=== PATIENT | female | born 1995 | race Asian ===

== ENCOUNTER 2018-01-11 16:17 | Emergency (ER) | payer OTHER ==
[2018-01-11 18:25] LABS: ABS Basophils 0.1 10^3/ul (0-0.2); ABS Eosinophils 0.1 10^3/ul (0-0.6); ABS Lymphocytes 1.6 10^3/ul (1.0-4.8); ABS Monocytes 0.4 10^3/ul (0-0.8); ABS Neutrophils 7.4 10^3/ul (1.5-7.7); ABS Nucleated RBC 0 10^3/ul; Eosinophil % 0.5 % (0-6); Hematocrit 41 % (35-47); Hemoglobin 13.6 g/dl (12.0-16.0); Lymphocyte % 16.6 % (25-47); Mean Corpuscular HGB Conc 34 g/dl (31-36); Mean Corpuscular Hemoglobin 30 pg (27-31); Mean Corpuscular Volume 90 fL (80-97); Mean Platelet Volume 7.8 um3 (7.4-10.4); Nucleated Red Blood Cells % 0.1; Platelet Count 221 10^3/ul (150-450); Red Cell Distribution Width 14 % (10.5-15); White Blood Count 9.6 10^3/ul (3.5-10.8)
--- NOTE | 2018-01-11 19:17 | RAD ---
INDICATION: Ectopic . COMPARISON: There are no prior studies available for comparison. TECHNIQUE: Multiple real-time transvaginal images of the pelvis were obtained. FINDINGS: The uterus is normal in size shape and echogenicity. The endometrial echo measures 0.6 cm in thickness. 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 No intrauterine gestational sac is seen. The right ovary measured 3.6 x 2.1 x 3.7 cm. The left ovary measured 3.0 x 2.5 x 1.5 cm. There are small bilateral subcentimeter follicular cysts present. There is a solid lesion medial to the right ovary and adjacent to the uterus measuring 2.3 x 1.5 x 1.6 cm suspicious for an ectopic . No heartbeat is seen. There is a small amount of complex fluid present within the cul-de-sac. The results of this exam were discussed with the referring clinician. IMPRESSION: 1. FINDINGS SUSPICIOUS FOR AN ECTOPIC IN THE RIGHT ADNEXAL REGION. 2. SMALL AMOUNT OF COMPLEX FREE INTRAPERITONEAL FLUID.
--- NOTE | 2018-01-11 19:47 | ED ---
Mery Melvin Elizabeth, scribed for Candelario Blood MD on 01/11/18 at 1804 . GI/ HPI - HPI Summary HPI Summary: This patient is a 22 year old F referred to [facility] from [facility] following unstable hormone levels. The patient reports that 8 days ago she had an early medicine after an ultrasound at [facility] revealed an ectopic . Patient reports she had vaginal bleeding for 5 days after, but says the bleeding has since resolved. - History of Current Complaint Chief Complaint: EDOBProblems Time Seen by Provider: 01/11/18 17:21 Stated Complaint: OB ISSUE Hx Obtained From: Patient Onset/Duration: Started Days Ago, Still Present Timing: Lasting Days Severity: Mild Pain Intensity: 0 Additional Signs & Symptoms: Positive: , Ectopic Aggravating Factor(s): Nothing Alleviating Factor(s): Nothing - Allergy/Home Medications Allergies/Adverse Reactions: Allergies Allergy/AdvReac Type Severity Reaction Status Date / Time No Known Allergies Allergy Verified 01/11/18 16:23 Home Medications: Home Medications Oral Control 1 tab PO DAILY 01/11/18 [History Confirmed 01/11/18] PMH/Surg Hx/FS Hx/Imm Hx Opthamlomology History: Denies: Hx Legally Blind EENT History: Denies: Hx Deafness Infectious Disease History: No Infectious Disease History: Denies: Traveled Outside the [place] in Last 30 Days - Family History Known Family History: Positive: None - Social History Alcohol Use: Rare Substance Use Type: Reports: None Smoking Status (MU): Never Smoked Tobacco Review of Systems Negative: Chest Pain Negative: Cough Negative: Rash Negative: Headache All Other Systems Reviewed And Are Negative: Yes Physical Exam - Summary Physical Exam Summary: Appearance: The patient is well-nourished in no acute distress and in no acute pain. Skin: The skin is warm and dry and skin color reflects adequate perfusion. HEENT: The head is normocephalic and atraumatic. The pupils are equal and reactive. The conjunctivae are clear and without drainage. Nares are patent and without drainage. Mouth reveals moist mucous membranes and the throat is without erythema and exudate. The external ears are intact. The ear canals are patent and without drainage. The tympanic membranes are intact. Neck: the neck is supple with full range of motion and non-tender. There are no carotid bruits. There is no neck vein distension. Respiratory: Chest is non-tender. Lungs are clear to auscultation and breath sounds are symmetrical and equal. Cardiovascular: Heart is regular rate and rhythm. There is no murmur or rub auscultated. There is no peripheral edema and pulses are symmetrical and equal. Abdomen: The abdomen is soft and non-tender. There are normal bowel sounds heard in all four quadrants and there is no organomegaly palpated. Musculoskeletal: There is no back tenderness noted. Extremities are non-tender with full range of motion. There is good capillary refill. There is no peripheral edema or calf tenderness elicited. Neurological: Patient is alert and oriented to person, place and time. The patient has symmetrical motor strength in all four extremities. Cranial nerves are grossly intact. Deep tendon reflexes are symmetrical and equal in all four extremities. Psychiatric: The patient has an appropriate affect and does not exhibit any anxiety or depression. Triage Information Reviewed: Yes Vital Signs On Initial Exam: Initial Vitals Temp Pulse Resp BP Pulse Ox 98.8 F 91 15 131/66 98 01/11/18 16:19 01/11/18 16:19 01/11/18 16:19 01/11/18 16:19 01/11/18 16:19 Vital Signs Reviewed: Yes Diagnostics - Vital Signs Vital Signs Temp Pulse Resp BP Pulse Ox 01/11/18 16:19 98.8 F 91 15 131/66 98 - Laboratory Lab Results: Lab Results 01/11/18 01/11/18 Range/Units 18:16 18:16 WBC 9.6 (3.5-10.8) 10^3/ul RBC 4.50 (4.0-5.4) 10^6/ul Hgb 13.6 (12.0-16.0) g/dl Hct 41 (35-47) % MCV 90 (80-97) fL MCH 30 (27-31) pg MCHC 34 (31-36) g/dl RDW 14 (10.5-15) % Plt Count 221 (150-450) 10^3/ul MPV 7.8 (7.4-10.4) um3 Neut % (Auto) 77.6 (38-83) % Lymph % (Auto) 16.6 L (25-47) % Reeves % (Auto) 4.6 (0-7) % Eos % (Auto) 0.5 (0-6) % Baso % (Auto) 0.7 (0-2) % Absolute Neuts (auto) 7.4 (1.5-7.7) 10^3/ul Absolute Lymphs (auto) 1.6 (1.0-4.8) 10^3/ul Absolute Monos (auto) 0.4 (0-0.8) 10^3/ul Absolute Eos (auto) 0.1 (0-0.6) 10^3/ul Absolute Basos (auto) 0.1 (0-0.2) 10^3/ul Absolute Nucleated RBC 0 10^3/ul Nucleated RBC % 0.1 Sodium 141 (139-145) mmol/L Potassium 4.1 (3.5-5.0) mmol/L Chloride 109 (101-111) mmol/L Carbon Dioxide 26 (22-32) mmol/L Anion Gap 6 (2-11) mmol/L BUN 13 (6-24) mg/dL Creatinine 0.65 (0.51-0.95) mg/dL Est GFR ( Amer) 144.0 (>60) Est GFR (Non-Af Amer) 112.0 (>60) BUN/Creatinine Ratio 20.0 (8-20) Glucose 103 H (70-100) mg/dL Calcium 9.4 (8.6-10.3) mg/dL Total Bilirubin 0.40 (0.2-1.0) mg/dL AST 16 (13-39) U/L ALT 14 (7-52) U/L Alkaline Phosphatase 53 (34-104) U/L Total Protein 7.3 (6.4-8.9) g/dL Albumin 4.4 (3.2-5.2) g/dL Globulin 2.9 (2-4) g/dL Albumin/Globulin Ratio 1.5 (1-3) Beta HCG, Quant 688.56 mIU/mL Result Diagrams: 01/11/18 18:16 01/11/18 18:16 Lab Statement: Any lab studies that have been ordered have been reviewed, and results considered in the medical decision making process. GIGU Course/Dx - Course Course Of Treatment: Ms. Rice is asymptomatic on arrival here but has an HCG of 688 and a likely ectopic on transvaginal U/S. Her labs are otherwise normal. I spoke with Dr. Tanner and we are going to treat her with methotrexate and close F/U. She is very stable here. - Diagnoses Provider Diagnoses: Ectopic Discharge - Sign-Out/Discharge Documenting (check all that apply): Discharge/Admit/Transfer - Discharge Plan Condition: Stable Disposition: HOME Patient Education Materials: Methotrexate (By injection), Ectopic (DC ) Referrals: [facility] - MRDarren [Primary Care Provider] - - Billing Disposition and Condition Condition: STABLE Disposition: HOME The documentation as recorded by the Mery saldana Elizabeth accurately reflects the service I personally performed and the decisions made by me, Candelario Blood MD.
[2018-01-11] MEDS ORDERED: Methotrexate* 25 MG/ML 4 ML VIAL IM ONE (20:00)
[2018-01-11] MEDS ORDERED: Methotrexate* 25 MG/ML 2 ML VIAL IM ONE (20:30)
[2018-01-11 22:07] VITALS: BP 121/73
== END 2018-01-11 22:06 | disposition home or self-care (01) ==
LOC: ED 16:17
DX: O00.90 Unspecified ectopic pregnancy without intrauterine pregnancy (principal)
CPT/HCPCS: 36415; 76817; 80053; 84702; 85025; 96372; 99282; J9250; J9260